=== PATIENT | male | born 1985 | race Two or more races ===

== ENCOUNTER 2020-03-19 16:46 | Emergency (ER) | payer OTHER, MEDICAID ==
[~2020-03-19] VITALS: Ht 177.8 cm; Wt 80.3 kg
[2020-03-19 16:47] VITALS: BP 152/86
== END 2020-03-19 17:13 ==
LOC: ER 16:49
DX: S60.812A Abrasion of left wrist, initial encounter (principal); Z02.89 Encounter for other administrative examinations; X58.XXXA Exposure to other specified factors, initial encounter; Y93.89 Activity, other specified; Y92.89 Other specified places as the place of occurrence of the external cause; Y99.8 Other external cause status